=== PATIENT | female | born 1960 | race American Indian/Alaskan Native ===

== ENCOUNTER 2017-03-22 13:52 | Outpatient (CLI) | payer OTHER ==
--- NOTE | 2017-03-24 13:08 | Magnetic Resonance Report ---
BILATERAL BREAST MRI WITHOUT AND WITH CONTRAST: 03/22/17 13:52:00 CLINICAL: History of right breast cancer status post right mastectomy with TRAM reconstruction. Right breast mass. COMPARISON:. TECHNIQUE: Axial 1.0-mm T1 without, axial high resolution 2.0-mm T2 and axial 1.0-mm dynamic Vibrant high-resolution postcontrast T1 fat saturation sequences on a 1.5 Shanika magnet. The examination was performed with an 8 channel dedicated Sentinelle breast coil. Post processing with CAD and subtraction was performed on an [employer] workstation. 20 cc of Multihance was injected without incident for the contrast portion of the exam. Consent was obtained prior to the administration of the contrast. FINDINGS: Right: TRAM reconstruction with minimal background enhancement. An irregular enhancing mass at 12 o'clock 8.8 cm from the nipple measures 18.1 x 12.3 x 10.3 mm. It demonstrates heterogeneous enhancement with mixed kinetics, 137% peak enhancement, 56% typed I persistent, 41% type II plateau and 3% type III washout. No other mass or suspicious enhancement of the reconstructed right breast. No suspicious right axillary or right internal mammary lymph nodes. Left: Mild background parenchymal enhancement. No mass or suspicious enhancement. No suspicious left axillary or left internal mammary lymph nodes. IMPRESSION: 1. A 18.1 mm right breast mass at 12 o'clock which is suspicious for recurrent cancer. 2. We will schedule an ultrasound guided needle biopsy of the right breast mass since we have an order for a breast biopsy. 3. Negative left breast. 4. No suspicious lymph nodes. RIGHT BI-RADS 5 - - Highly Suggestive of Malignancy LEFT BI-RADS 1 -- Negative
--- NOTE | 2017-03-24 13:35 | Mammography Report ---
LEFT DIGITAL DIAGNOSTIC MAMMOGRAM with CAD: 03/22/17 13:52:00 CLINICAL: Breast cancer survivor status post right mastectomy and TRAM reconstruction. She also has a right breast mass for which an MRI Breast is being done on this same day. COMPARISON:[facility] 02/23/16 and 03/31/15 mammograms. FINDINGS: The breast is heterogeneously dense, which may obscure small masses.No mass, architectural distortion or suspicious calcifications. IMPRESSION: No mammographic evidence of malignancy in the left breast. BI-RADS CATEGORY: 1 - - Negative RECOMMENDATION: 1. Routine mammographic screening of the left breast in one year. 2. Management of the right breast based on MRI findings. ACR BI-RADS MAMMOGRAPHIC CODES: 0 = Needs additional imaging evaluation; 1 = Negative; 2 = Benign; 3 = Probably benign; 4 = Suspicious; 5 = Malignant; 6 = Known biopsy-proven malignancy COMMENT: 1. Dense breast tissue, i.e., adenosis, fibrocystic changes, etc., may obscure an underlying neoplasm. 2. Approximately 10% of cancers are not detected with mammography. 3. A negative mammography report should not delay biopsy if a clinically suspicious mass is present. COMMENT: Patient follow-up letters are generated by our [employer] application.
== END 2017-03-22 13:53 | disposition home or self-care (01) ==
LOC: SPVIMAG 13:52
DX: N63.10 Unspecified lump in the right breast, unspecified quadrant (principal); Z83.3 Family history of diabetes mellitus; Z98.82 Breast implant status; Z85.3 Personal history of malignant neoplasm of breast
CPT/HCPCS: 77066; A9577; C8908; 77059

== ENCOUNTER 2017-04-04 13:57 | Outpatient (CLI) | payer OTHER ==
--- NOTE | 2017-04-04 16:44 | Ultrasound Report ---
ULTRASOUND GUIDED NEEDLE CORE BIOPSY RIGHT BREAST WITH CLIP PLACEMENT: 04/04/17 CLINICAL: Suspicious right breast mass at 12 o'clock 9 cm from the nipple. She is nine months status post right mastectomy with TRAM reconstruction. COMPARISON :03/22/17 MRI Breast FINDINGS: The procedure was explained to the patient and informed consent was obtained. Ultrasound demonstrated irregular solid hypoechoic mass with shadowing at 12 o'clock 9 cm from the nipple. It measures 1.6 x 0.6 x 1.4 cm and correlates with the mass identified by MRI.. I marked the breast with a felt tip marker and a time out was called. The skin was prepped with Betadine and anesthetized with 1% lidocaine. Needle core biopsy was performed through a tiny dermatotomy using ultrasound guidance, 2% lidocaine with epinephrine for deep anesthesia and a 14-gauge Achieve biopsy device. 3 cores were obtained and placed in formalin. A clip was deployed within the mass. The patient tolerated the procedure well and there were no apparent complications. Hemostasis was achieved with minimal pressure and a sterile dressing was applied. A post procedure mammogram was performed. She left the department in good condition and was given instructions for wound care and followup. IMPRESSION: Uncomplicated ultrasound guided needle core biopsy with clip placement right breast.
== END 2017-04-04 13:58 | disposition home or self-care (01) ==
LOC: SPVWC 13:57
DX: D24.1 Benign neoplasm of right breast (principal); Z90.11 Acquired absence of right breast and nipple
CPT/HCPCS: 88305; 88341; 88342

== ENCOUNTER 2017-09-05 09:42 | Outpatient (CLI) | payer OTHER ==
--- NOTE | 2017-09-05 14:30 | Ultrasound Report ---
RIGHT DIGITAL DIAGNOSTIC MAMMOGRAM with CAD and RIGHT BREAST ULTRASOUND: 09/05/17 09:42:00 CLINICAL: Follow-up after benign biopsy.History of right breast cancer status post right mastectomy with TRAM reconstruction. Ultrasound guided needle biopsy of a right palpable mass in the upper portion of the reconstructed right breast was performed on 04/04/17. 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 COMPARISON:No comparison mammogram. This is the first post mastectomy mammogram. FINDINGS: The reconstructed breast is almost entirely fatty. An irregular mass at 12 o'clock near the edge of the breast contains a biopsy clip and correlates with the previously biopsied lesion. No other mass, architectural distortion or suspicious calcifications. Ultrasound of the reconstructed right breast is limited to the biopsied mass at 12 o'clock approximately 8 cm from the nipple. The mass is near anechoic and irregular in shape but its slightly more smooth than on the prior exam. It measures 1.9 x 0.9 x 0.7 cm compared to 1.6 x 0.6 x 1.4 cm on the last exam. IMPRESSION: A slightly smaller benign mass of the reconstructed right breast at 12 o'clock 8 cm from the nipple. BI-RADS CATEGORY: 2 -- Benign RECOMMENDATION: Return to routine mammographic screening. ACR BI-RADS MAMMOGRAPHIC CODES: 0 = Needs additional imaging evaluation; 1 = Negative; 2 = Benign; 3 = Probably benign; 4 = Suspicious; 5 = Malignant; 6 = Known biopsy-proven malignancy COMMENT: 1. Dense breast tissue, i.e., adenosis, fibrocystic changes, etc., may obscure an underlying neoplasm. 2. Approximately 10% of cancers are not detected with mammography. 3. A negative mammography report should not delay biopsy if a clinically suspicious mass is present. COMMENT: Patient follow-up letters are generated by our [employer] application.
== END 2017-09-05 09:43 | disposition home or self-care (01) ==
LOC: MAMMO 09:42
DX: N63.10 Unspecified lump in the right breast, unspecified quadrant (principal); R92.8 Other abnormal and inconclusive findings on diagnostic imaging of breast; I10 Essential (primary) hypertension; Z90.12 Acquired absence of left breast and nipple

== ENCOUNTER 2018-05-10 09:42 | Outpatient (CLI) | payer OTHER ==
--- NOTE | 2018-05-10 15:27 | Mammography Report ---
BILATERAL DIGITAL SCREENING MAMMOGRAM WITH CAD: 05/10/18 09:42:00 CLINICAL: Routine screening.Breast cancer survivor status post right mastectomy with TRAM reconstruction. Status post right ultrasound-guided needle biopsy of a palpable mass at 12 o'clock 9 cm from the nipple on 04/04/17. 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 COMPARISON:09/05/17 right mammogram and 03/22/17 bilateral mammogram. FINDINGS: The left breast is heterogeneously dense, which may obscure small masses. Stable appearance of the right TRAM reconstruction. A stable right irregular breast mass with the biopsy clip at 12 o'clock area No new mass, suspicious architectural distortion or suspicious calcifications. IMPRESSION: No mammographic evidence of malignancy. BI-RADS CATEGORY: 2 -- Benign RECOMMENDATION: Routine mammographic screening in one year. COMMENT: Patient follow-up letters are generated via our [employer] application.
== END 2018-05-10 09:43 | disposition home or self-care (01) ==
LOC: SPVWC 09:42
DX: Z12.31 Encounter for screening mammogram for malignant neoplasm of breast (principal); I10 Essential (primary) hypertension
CPT/HCPCS: 77067

== ENCOUNTER 2018-11-06 08:42 | Outpatient (CLI) | payer OTHER ==
--- NOTE | 2018-11-07 15:26 | Magnetic Resonance Report ---
BILATERAL BREAST MR WITHOUT AND WITH GADOLINIUM INDICATION: Breast cancer survivor status post right mastectomy with TRAM reconstruction. Status pos t right ultrasound-guided needle biopsy 04/04/2017 with pathology revealing benign spindle cell neopla sm suggestive of leiomyoma. COMPARISONS: 03/22/2017 MRI and 05/10/2018 and 11/06/2018 mammograms TECHNIQUE: Axial 1.0 mm T1 without, axial high-resolution 2.0 mm T2 and axial 1.0 mm dynamic vibrant high-resolution postcontrast T1 fat saturation sequences on a 1.5 Shanika magnet. The examination was p erformed with an 8-channel dedicated [employer] breast coil. Post-processing with CAD and subtraction was performed on an [employer] workstation. 16.0 cc of MultiHance was injected without incident for the c ontrast portion of the exam. Consent was obtained prior to the administration of the contrast. FINDINGS: RIGHT BREAST: Minimal background parenchymal enhancement of the reconstructed breast. Stable slightly irregular shape mass at 12:00 9 cm from the nipple measuring 17 x 9 x 7 mm. It correlates with the b iopsy proven benign spindle cell neoplasm. It demonstrates heterogeneous enhancement with mixed kinet ics, 207% peak enhancement and 68% type III washout. No other mass or suspicious enhancement of the r ight breast. No suspicious lymph nodes. LEFT BREAST: Minimal background parenchymal enhancement. No mass or suspicious enhancement. No suspic ious lymph nodes. IMPRESSION: A stable benign spindle cell neoplasm of the reconstructed right breast at 12:00. No susp icious finding in either breast. Recommended routine mammographic screening. BI-RADS Category 2: Benign Signer Name: Candelario Saenz MD Signed: 11/07/2018 3:21 PM Workstation Name: [id number]
== END 2018-11-06 08:43 | disposition home or self-care (01) ==
LOC: SPVWC 08:42
DX: C50.911 Malignant neoplasm of unspecified site of right female breast (principal); I10 Essential (primary) hypertension
CPT/HCPCS: A9577; C8908; 77049

== ENCOUNTER 2020-01-01 15:25 | Outpatient (CLI) | payer OTHER ==
--- NOTE | 2020-01-01 16:39 | Magnetic Resonance Report ---
Bilateral breast MR without and with contrast. History: History of right breast cancer status post mastectomy with TRAM reconstruction. Patient has underwent ultrasound-guided biopsy of a mass in the right superior breast which revealed benign spind le cell neoplasm suggestive of leiomyoma. Comparison: 11/06/2018, 05/10/2018, 03/22/2017. Technique: Multiplanar multisequence MR images of the breast were obtained before and after the intra venous administration of intravenous contrast. Post processing analysis and review was performed on a separate computer workstation. Findings: Patient is status post right breast mastectomy with flap reconstruction. The left breast demonstrates heterogenously dense fibroglandular tissue. There is moderate background parenchymal enhancement thr oughout the left breast which along with the presence of multiple scattered enhancing foci decreases the sensitivity of MRI. RIGHT BREAST: Located within the right breast at the 12:00 position is a now 2 x 1 x 0.9 cm irregular enhancing mass. This is slightly increased in size from 2019 MRI where it measured 1.7 x 0.9 x 0.7 c m. No new enhancing mass or other abnormal enhancement within the right breast. LEFT BREAST: No discrete enhancing mass, dominant focus, or other abnormal enhancement is identified within the left breast, although the presence of moderate diffuse parenchymal enhancement and multipl e scattered enhancing foci (both which appear not significantly changed) does decrease the sensitivit y of MRI. No abnormal axillary or internal mammary lymph nodes. Mildly prominent left axillary lymph nodes appe ar not significantly changed from compared to prior exams. Impression: Very slight increased size of a right 12:00 breast mass (now measuring up to 2 cm). This was previous ly biopsied and was found to represent benign spindle cell neoplasm. No new suspicious findings withi n either breast. BIRADS 2: Benign A normal MRI does not exclude the presence of some forms of breast malignancy as literature reports s uggest that some forms of ductal carcinoma in situ or lobular carcinoma, particularly, may not be det ected on MRI. The sensitivity and specificity of MRI for cancers under 5 mm may be reduced. MRI does not replace the recommendation for annual conventional mammographic evaluation and should be used as an adjunct to mammography and physical examination as necessary. Signer Name: Prince Gayle MD Signed: 01/01/2020 4:34 PM Workstation Name: [id number]
== END 2020-01-01 15:26 | disposition home or self-care (01) ==
LOC: SPVIMAG 15:25
PROVIDERS: ATTEND Internal Medicine
DX: N63.15 Unspecified lump in the right breast, overlapping quadrants (principal); N64.89 Other specified disorders of breast; Z90.11 Acquired absence of right breast and nipple; Z85.3 Personal history of malignant neoplasm of breast
CPT/HCPCS: A9577; C8908; 77049

== ENCOUNTER 2020-12-22 09:02 | Outpatient (CLI) | payer OTHER ==
--- NOTE | 2020-12-28 13:13 | Magnetic Resonance Report ---
MRI BREAST BILATERAL WITH AND WITHOUT CONTRAST, 12/22/2020 CLINICAL INFORMATION / INDICATION: PERSONAL HX OF BREAST CA Z85.3. TECHNIQUE: Axial T1 and T2-weighted fat sat images were obtained precontrast. 17 cc Clariscan contras t was injected intravenously and serial axial T1 weighted images with fat saturation were obtained. 3 -D MIP projections, kinetic analysis, and subtraction imaging were utilized to evaluate. A dedicated 8-channel breast coil was used for image acquisition. COMPARISON: Breast MRI performed on 01/01/2020 FINDINGS: BREAST DENSITY: Scattered areas of fibroglandular density. BACKGROUND ENHANCEMENT: Low level background enhancement within both breasts. RIGHT BREAST: Mastectomy and breast reconstructive changes are again noted with scarring seen in the 12:00 position. The previously described enhancing 12:00 mass is not clearly visualized on this study . Scarring is noted in that location. No mass or suspicious nonmass enhancement is identified elsewhe re. LEFT BREAST: No dominant mass or suspicious area of enhancement in the left breast. AXILLAE: No pathologically enlarged axillary lymph nodes. ADDITIONAL FINDINGS: Limited imaging of the thorax and upper abdomen demonstrates no focal abnormalit y. IMPRESSION: 1. No MRI evidence of malignancy. Follow up recommendation: Back to schedule. BI-RADS Category 2: Benign. Signer Name: Ahsan Garcia MD Signed: 12/28/2020 1:09 PM Workstation Name: [id number]
== END 2020-12-22 09:03 | disposition home or self-care (01) ==
LOC: SPVIMAG 09:02
PROVIDERS: ATTEND Internal Medicine Hematology & Oncology
DX: Z12.31 Encounter for screening mammogram for malignant neoplasm of breast (principal); Z01.89 Encounter for other specified special examinations; Z85.3 Personal history of malignant neoplasm of breast
CPT/HCPCS: A9575; C8908; 77049